=== PATIENT | female | born 1985 | race Caucasian/White ===

== ENCOUNTER 2022-09-05 14:28 | Emergency (ER) | payer BC, SELFPAY ==
[2022-09-05 14:55] VITALS: BP 138/80; PULSE 78; RESP 18; TEMP 36.5; O2SAT 99
--- NOTE | 2022-09-05 15:22 | ED.URI ---
HPI - URI/Sore Throat General Chief Complaint: Upper Respiratory Infection Stated Complaint: hoarness,cough Time Seen by Provider: 09/05/22 15:12 Source: patient Mode of arrival: ambulatory Limitations: no limitations History of Present Illness HPI Narrative: Patient presents today complaining of 12 day history of cough, nasal congestion, hoarse voice. Reports cough is now dry and nonproductive. Denies fever or shortness of breath. Approximately 1 week ago she had a virtual visit through her insurance company and was prescribed Medrol and a nasal spray. She has 1 day of the Medrol Dosepak left which is providing no relief. She has also been taking Mucinex severe and Tylenol Severe day and night without much relief. Related Data Allergies Allergy/AdvReac Type Severity Reaction Status Date / Time No Known Allergies Allergy Verified 09/05/22 14:58 Review of Systems Review of Systems: CONSTITUTIONAL: Denies body aches, fever, chills, or sweats. EYES: Denies visual changes, redness, or discharge. ENT: Denies rhinorrhea, sore throat, or otalgia.+ congestion, hoarseness CARDIOVASCULAR: Denies chest pain, palpitations, or edema. RESPIRATORY: Denies dyspnea.+ cough GASTROINTESTINAL: Denies abdominal pain, nausea, vomiting, or diarrhea. GENITOURINARY: Denies dysuria or hematuria. SKIN: Denies rash, itching, or wounds. MUSCULOSKELETAL: Denies back pain, joint pain, or myalgia. NEUROLOGIC: Denies headache, numbness, tingling, or weakness. PSYCH: Denies depression or anxiety. PMFSH Surgical History Surgical History Hx of fasciotomy Hx of rhinoplasty Social History Social History Smoking status: Unknown if ever smoked Alcohol intake: current Substance use: current Comments My found Exam Narrative: GENERAL: Mildly ill-appearing, well-nourished, and in no acute distress. HEAD: Normocephalic, atraumatic. EYES: EOMI. No redness or drainage. Conjunctivae normal. ENT: Mucous membranes pink and moist. Nares congested. Left maxillary sinus tenderness. No frontal sinus tenderness. No rhinorrhea. TMs normal bilaterally. Throat normal. Uvula midline. NECK: Normal AROM. Supple. No lymphadenopathy. CHEST: No respiratory distress. Clear to auscultation. HEART: Regular rate and rhythm. No murmur appreciated. Normal peripheral pulses. EXTREMITIES: Normal range of motion. No edema. SKIN: Warm, dry, no rash. Capillary refill normal. Normal skin turgor. NEURO: No focal deficits. Alert and oriented x3. Gait steady. PSYCH: Normal affect. No signs of depression or anxiety. Course Course Level of Care: Express Care Visit Vital Signs Vital signs: Vital Signs Temperature 97.7 F 09/05/22 14:55 Pulse Rate 78 09/05/22 14:55 Respiratory Rate 18 09/05/22 14:55 Blood Pressure 138/80 09/05/22 14:55 Pulse Oximetry 99 09/05/22 14:55 Oxygen Delivery Room Air 09/05/22 14:55 Temperature 97.7 F 09/05/22 14:55 Pulse Rate 78 09/05/22 14:55 Respiratory Rate 18 09/05/22 14:55 Blood Pressure 138/80 09/05/22 14:55 Pulse Oximetry 99 09/05/22 14:55 Oxygen Delivery Room Air 09/05/22 14:55 Reviewed. Pt has been instructed to follow up with her PCP regarding her elevated blood pressure today. MDM - URI/Sore Throat Differential Diagnosis Differential diagnosis: Likely upper respiratory infection, sinusitis, bronchitis and other (Pneumonia, laryngitis) Critical Care Time Critical Care Time Critical Care Time: No Discharge Plan Discharge Clinical Impression: Bronchitis, Laryngitis Sinusitis Qualifiers: Sinusitis location: maxillary Chronicity: acute Recurrence: non-recurrent Qualified Code(s): J01.00 - Acute maxillary sinusitis, unspecified Patient Disposition: Home, Self-Care Condition: Stable Instructions: Antibiotic Form, Sinusitis (ED), Acute Bronchitis (ED
== END 2022-09-05 15:30 | disposition home or self-care (01) ==
PROVIDERS: Emergency Provider Nurse Practitioner; PCP Internal Medicine
DX: J40 Bronchitis, not specified as acute or chronic (principal); J05.0 Acute obstructive laryngitis [croup]; J01.00 Acute maxillary sinusitis, unspecified
CPT/HCPCS: 99213; G0463